=== PATIENT | male | born 1960 | race Caucasian/White ===

== ENCOUNTER 2017-05-17 15:43 | Emergency (ER) | payer OTHER ==
--- NOTE | ~2017-05-17 | CR181 ---
[facility] A Service [facility] RADIOLOGY TEXT RESULTS PATIENT: JAZMIN THOMAS LOCATION: SED : 60 UNIT #: [id number] AGE: [address]: NADJA JONES SEX: M ORDER DR: [id number] [place] [id number] E MR#: [id number] Acc #: [id number] NAME: JAZMIN THOMAS : 1960 SEX: M STUDY DATE/TIME: 05/17/2017 16:38 UNIT: SED ROOM: STUDY DESCRIPTION: CR Lumbar Spine 2 or 3 Views Attending Physician: Nadja Jones A.P.R.N. Ordering Physician: Nadja Jones A.P.R.N. Primary Care Physician: Tatianna Farrell Aprn MEDICAL IMAGING REPORT This report is preliminary unless electronic signature is present. EXAM Lumbar series 05/17/2017. INDICATION Stepped in a pothole at a gas station yesterday and has low back pain extending into the femur and right knee. TECHNIQUE 3 views lumbar spine. COMPARISON Compared with 10/21/2013. FINDINGS Generalized straightening of the expected lumbar curve. Degenerative disc disease at all lumbar levels. Facet arthropathy throughout the lower lumbar levels most severe at L5-S1. No acute fracture or malalignment. Bilateral hip replacements. IMPRESSION 1. Degenerative change in the lumbar spine, but no acute fracture or malalignment. Dictated by... Phuc Aparicio M.D. THIS IS AN ELECTRONICALLY VERIFIED REPORT Phuc Aparicio M.D. at 05/18/2017 2:23 PM SONALIY/luis miguel TD: 05/18/2017 11:29 JOB #: [id number] [facility] A [facility] RADIOLOGY TEXT RESULTS PATIENT: JAZMIN THOMAS LOCATION: SED : 60 UNIT #: [id number] AGE: [address]: NADJA JONES SEX: M ORDER DR: MEDICAL IMAGING REPORT Page 1 of 1
--- NOTE | ~2017-05-17 | CR107 ---
[facility] A Service of [facility] RADIOLOGY TEXT RESULTS PATIENT: JAZMIN THOMAS LOCATION: SED : 60 UNIT #: [id number] AGE: [address]: NADJA JONES SEX: M ORDER DR: [id number] [place] [id number] E MR#: [id number] Acc #: [id number] NAME: JAZMIN THOMAS : 1960 SEX: M STUDY DATE/TIME: 05/17/2017 16:38 UNIT: SED ROOM: STUDY DESCRIPTION: CR Femur 2 Views Rt Attending Physician: Nadja Jones A.P.R.N. Ordering Physician: Nadja Jones A.P.R.N. Primary Care Physician: Tatianna Farrell Aprn MEDICAL IMAGING REPORT This report is preliminary unless electronic signature is present. EXAM Right femur 05/17/2017. INDICATIONS Stepped in a pothole at a gas station. Femur and knee pain. Injury occurred yesterday. Pain from the femur into the knee. TECHNIQUE 2 views of the right femur. COMPARISON No comparisons. FINDINGS The patient is status post right hip replacement. Surgical hardware intact. No acute fracture. Degenerative changes in the right knee. IMPRESSION 1. Negative. Dictated by... Phuc Aparicio M.D. THIS IS AN ELECTRONICALLY VERIFIED REPORT Phuc Aparicio M.D. at 05/18/2017 2:23 PM KYLER/luis miguel TD: 05/18/2017 11:18 JOB #: [id number] MEDICAL IMAGING REPORT Page 1 of 1
--- NOTE | ~2017-05-17 | CR173 ---
[facility] A Service [facility] RADIOLOGY TEXT RESULTS PATIENT: JAZMIN THOMAS LOCATION: SED : 60 UNIT #: [id number] AGE: [address]: NADJA JONES SEX: M ORDER DR: [id number] [place] [id number] E MR#: [id number] Acc #: [id number] NAME: JAZMIN THOMAS : 1960 SEX: M STUDY DATE/TIME: 05/17/2017 16:38 UNIT: SED ROOM: STUDY DESCRIPTION: CR Knee 3 Views Rt Attending Physician: Nadja Jones A.P.R.N. Ordering Physician: Nadja Jones A.P.R.N. Primary Care Physician: Tatianna Farrell Aprn MEDICAL IMAGING REPORT This report is preliminary unless electronic signature is present. EXAM Right knee 05/17/2017. INDICATIONS Pain in the right knee and femur after stepping in a pothole at a gas station yesterday. Pain from the femur into the knee. TECHNIQUE 3 views. COMPARISON No comparisons. FINDINGS There are tricompartmental degenerative changes in the right knee. These are most conspicuous in the medial and patellofemoral compartments. No acute fracture. No joint effusion. IMPRESSION 1. Degenerative change, but no acute fracture or joint effusion. Dictated by... Phuc Aparicio M.D. THIS IS AN ELECTRONICALLY VERIFIED REPORT Phuc Aparicio M.D. at 05/18/2017 2:23 PM SONALIY/luis miguel TD: 05/18/2017 11:19 JOB #: [id number] MEDICAL IMAGING REPORT [facility] A [facility] RADIOLOGY TEXT RESULTS PATIENT: JAZMIN THOMAS LOCATION: SED : 60 UNIT #: [id number] AGE: [address]: NADJA JONES SEX: M ORDER DR: Page 1 of 1
--- NOTE | ~2017-05-17 | CR58 ---
[facility] A Service of [facility] RADIOLOGY TEXT RESULTS PATIENT: JAZMIN THOMAS LOCATION: [facility] : [birth year] UNIT #: [id number] AGE: [address]: NADJA JONES SEX: M ORDER DR: [id number] [address] [address] [id number] E MR#: [id number] Acc #: [id number] NAME: JAZMIN THOMAS : 1960 SEX: M STUDY DATE/TIME: 05/17/2017 16:38 UNIT: SED ROOM: STUDY DESCRIPTION: CR Cervical Spine 2 or 3 Views Attending Physician: Nadja Jones A.P.R.N. Ordering Physician: Nadja Jones A.P.R.N. Primary Care Physician: Tatianna Farrell Aprn MEDICAL IMAGING REPORT This report is preliminary unless electronic signature is present. EXAM Cervical series 05/17/2017. INDICATIONS 56-year-old male with posterior neck pain after slipping in a pothole at a gas station yesterday. TECHNIQUE Lateral, swimmers, frontal and open-mouth odontoid views performed. COMPARISON No comparisons FINDINGS There is motion degradation. Cervicothoracic junction intact. There are degenerative changes related to degenerative disc disease at C3-4, C4-5 and C5-6. Soft tissues unremarkable. Alignment preserved. Dens and lateral masses intact. There is multilevel facet arthropathy and there is uncovertebral spurring in the ulh-ue-gshpc cervical levels. These findings are worse on the right and the left. IMPRESSION 1. Motion degraded study demonstrates degenerative change in the cervical spine, but no acute fracture or malalignment. Dictated by... Phuc Aparicio M.D. THIS IS AN ELECTRONICALLY VERIFIED REPORT Phuc Aparicio M.D. at 05/18/2017 2:23 PM KYLER/luis miguel [facility] A Service [facility] RADIOLOGY TEXT RESULTS PATIENT: JAZMIN THOMAS LOCATION: [facility] #: [id number] : [birth year] UNIT #: [id number] AGE: [address]: NADJA JONES SEX: M ORDER DR: TD: 05/18/2017 11:21 JOB #: [id number] MEDICAL IMAGING REPORT Page 1 of 1
[~2017-05-17 15:43] MED LIST: ACULAR10 ML OP; ALBUTEROL17 G1 IH; ALBUTEROL17 GM INH; AUGMENTIN PO; BACITRACIN-POLY15 GM TOP; CLONIDINE PO; DIAZEPAM PO; DICLOFENAC PO; DOXYCYCLINE HY100 M1 PO; FLEXERIL PO; FLEXERIL10 M1 PO; FLEXERIL10 MG PO; HCTZ; HCTZ PO; HYDROCHLOROTHIA25 MG PO; HYDROCODON-ACE1 EAC7 PO; IBUPROFEN PO; KEFLEX PO; LISINOPRIL PO; LISINOPRIL10 MG PO; LORTAB 101 TAB 10/5 PO; LORTAB 5/500 TA1 TA1 PO; MEDROL DOSE PAK; MEDROL DOSEPAK4 MG PO; MEDROL PO; PERCOCET5/325 PO; PHENERGAN DM1 ML PO; PHENERGAN PO; POLYTRIM EYE DR10 ML OP; PREDNISONE PO; PREDNISONE50 MG PO; SKELAXIN PO; TYLENOL #3 PO; ULTRAM PO; VALIUM10 MG PO; VIBRAMYCIN100 M1 PO; VICODIN 5/500 T1 TAB PO
[2017-05-17] MEDS ORDERED: PERCOCET5/325 (15:52)
[2017-05-17] MEDS ORDERED: PERCOCET10 PO (15:53)
== END 2017-05-17 17:48 | disposition home or self-care (01) ==
LOC: SED 15:43
DX: S16.1XXA Strain of muscle, fascia and tendon at neck level, initial encounter (principal); S39.012A Strain of muscle, fascia and tendon of lower back, initial encounter; G62.9 Polyneuropathy, unspecified; Z88.2 Allergy status to sulfonamides; Z79.899 Other long term (current) drug therapy; W18.30XA Fall on same level, unspecified, initial encounter
CPT/HCPCS: 29530; 72040; 72100; 73552; 73562; 96372; 99283; J1885